=== PATIENT | male | born 1950 | race American Indian/Alaskan Native ===

== ENCOUNTER 2020-11-28 14:57 | Outpatient (CLI) | payer MEDICARE ==
--- NOTE | 2020-11-28 16:43 | XRay Report ---
CHEST 2 VIEWS INDICATION: DYSPNEA ON EFFORT R06.00. COMPARISON: None FINDINGS: SUPPORT DEVICES: None. HEART: Sternotomy change with prosthetic aortic valve. Normal heart size. LUNGS/PLEURA: No acute air space or interstitial disease. No pneumothorax. ADDITIONAL FINDINGS: None. IMPRESSION: 1. No acute findings. Signer Name: Bony Mi MD Signed: 11/28/2020 4:38 PM Workstation Name: [id number]
== END 2020-11-28 14:58 | disposition home or self-care (01) ==
LOC: SPVIMAG 14:57
PROVIDERS: ATTEND Internal Medicine
DX: R06.00 Dyspnea, unspecified (principal)
CPT/HCPCS: 71046